=== PATIENT | female | born 2000 | race African-American/Black ===

== ENCOUNTER 2020-05-24 17:41 | Emergency (ER) | payer BC ==
[~2020-05-24] VITALS: Ht 162.6 cm; Wt 113.4 kg
[2020-05-24 20:22] VITALS: BP 133/87
== END 2020-05-24 20:22 | disposition home or self-care (01) ==
LOC: ER 17:41
DX: R51.9 Headache, unspecified (principal); R10.31 Right lower quadrant pain; R10.32 Left lower quadrant pain